=== PATIENT | male | born 1970 | race African-American/Black ===

== ENCOUNTER 2021-10-21 06:26 | Inpatient (IN) | payer BC ==
[2021-10-21 07:36] VITALS: BP 179/92
[2021-10-21 11:00] VITALS: BP 190/100
[2021-10-21] MEDS ORDERED: HYDR100T24 PO (11:01)
[2021-10-21] MEDS ORDERED: DAPA10TA PO (11:01)
[2021-10-21] MEDS ORDERED: BUME2TAB3 PO (11:01)
[2021-10-21] MEDS ORDERED: MAGN400C PO (11:01)
[2021-10-21] MEDS ORDERED: INSU100I13 SQ (11:01)
[2021-10-21] MEDS ORDERED: LIPITOR80 MG PO (11:01)
[2021-10-21] MEDS ORDERED: CARV25TA2 PO (11:01)
--- NOTE | 2021-10-21 11:12 | PDOC2 ---
CARDIOLOGY CONSULT NOTE DATE OF SERVICE: DATE: 10/21/21 TIME: 11:07 CHIEF COMPLAINT: Dizziness and fatigue HPI: 51-year-old man who comes into the hospital in the setting of dizziness and lightheadedness. He was in his usual state of health and apparently yesterday at the grocery store began to move grocery carts from the parking lot into the grocery store in the significant heat and he did this for about an hour just to help other customers. He states that since then he also went to his yard work in the yard and then apparently had weakness and fatigue and some dizziness after that. Upon arrival to the [place] his creatinine was noted to be elevated to 3.5 from a baseline of 2.5 previously. The patient denied any associated palpitations, chest pain, dyspnea, orthopnea or PND. 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 He denies any other issues. He follows closely with nephrology and cardiology through [facility]. He has not had any other issues since admission to the hospital here at [facility]. PMHX: 1. Nonischemic cardiomyopathy last known ejection fraction of 40% 2. Chronic kidney disease 3. Hypertension 4. Dyslipidemia 5. Diabetes SOCHX: No alcohol, tobacco or illicit drug use. 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 He has a brother who works as well and is unable to care for their mother. FAMHX: Noncontributory CURRENT MEDS: Current home medications include carvedilol 25 mg p.o. twice daily, atorvastatin 80 mg daily, hydralazine 50 mg 3 times daily, bumetanide 2 mg daily, Entresto 97/103 twice daily, Farxiga 10 mg alton, insulin glargine 300 units twice daily ALLERGIES: No known drug allergies ROS: Negative for 10-14 systems reviewed unless otherwise mentioned above in HPI PHYSICAL EXAM: Vital Signs/I&O: Vital Signs Date Time Temp Pulse Resp B/P (MAP) Pulse Ox O2 Delivery O2 Flow Rate FiO2 10/21/21 11:00 97.8 66 18 190/100 (130) 98 Room Air 97.8 Physical Exam: GEN.: No apparent distress. Alert and oriented. HEENT: Head is normocephalic, atraumatic NECK: Supple. LUNGS: Clear to auscultation. HEART: RRR, S1, S2 present. Peripheral pulses intact ABDOMEN: Soft, nontender. Positive bowel sounds. EXTREMITIES: Without any cyanosis. NEUROLOGIC: Normal speech, normal tone PSYCHIATRIC: Normal affect, normal mood. SKIN: No ulcerations DIAGNOSTIC TESTING: Laboratory studies reviewed from [facility] [place] EKG reviewed Cardiac enzymes are negative BNP mildly elevated ASSESSMENT: 1. Dizziness likely secondary to dehydration 2. Nonischemic cardiomyopathy with an ejection fraction of 40% 3. Chronic kidney disease 4. Hypertension 5. Dyslipidemia 6. Diabetes PLAN: 1. No further cardiac testing necessary at this time. We will hold his Entresto and increase his hydralazine from home 50 mg 3 times daily 200 mg 3 times daily 2. He will have close follow-up with his outpatient applications analyst and harness racing handicapper for reinitiation of Entresto when his creatinine is improved. 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 From a purely cardiovascular standpoint stable for discharge. Thank you for this consultation. Discussed with primary care and nephrology. RYAN NGUYEN MD October 21, 2021 11:12
--- NOTE | 2021-10-21 11:48 | PDOC2 ---
CONSULT Date of Consult Date of Consult DATE: 10/21/21 TIME: 11:41 Reason for Consult Reason for Consult: RENAL FAILURE Referring Physician Referring Physician: JIM Identification/Chief Complaint Chief Complaint DIZZY Source Source: Chart review, Patient History of Present Illness Reason for Visit: THIS IS A 51 YR OLD WHO PRESENTED TO [facility] WITH DIZZINESS. NO CHEST PAIN OR ORTHOPNEA OR SOB. 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 EVALUATION THERE INDICATED A CR OF 3.5. HE WAS TRANSFERRED HER FOR RENAL AND CARDIOLOGY EVALUATION. HAS HX OF CHF. CXRAY DONE NEG FOR FAILURE. HAS CKD STAGE 4 WITH CR BASELINE IN THE 3.0-3.5 RANGE C/W CKD STAGE 4. HE SEES MY PARTNER DR VEE IN THE [facility]. SINCE ADMIT HE IS FEELING WELL. CARDIOLOGY EVALUATION ONGOING Past Medical History Cardiovascular: CHF, HTN, Hyperlipidemia GI: Constipation Heme/Onc: Anemia NOS Renal/: Chronic renal insuff Endocrine: Diabetes Past Surgical History Past Surgical History: Appendectomy Family History Family History: Diabetes, Hypertension Social History No ALCOHOL: none Drugs: None Lives: with Family Current Medications Current Medications Active Scripts Active Reported Lantus Solostar (Insulin Glargine,Hum.rec.anlog) 100 Unit/1 Ml Insuln.pen 30 Unit SQ BID Magnesium (Magnesium Oxide) 400 Mg Capsule 1 Cap PO BID 30 Days Farxiga (Dapagliflozin Propanediol) 10 Mg Tablet 10 Mg PO DAILY Bumetanide 2 Mg Tablet 2 Mg PO DAILY Hydralazine Hcl 100 Mg Tablet 1 Tab PO TID Lipitor (Atorvastatin Calcium) 80 Mg Tablet 1 Tab PO DAILY Carvedilol 25 Mg Tablet 25 Mg PO BIDWMEALS ROS General: YES: Fatigue, Malaise, Appetite PSYCHOLOGICAL ROS: YES: Depression ALLERGY AND IMMUNOLOGY: YES: Seasonal Allergies Respiratory: YES: Cough Genitourinary: YES Other (NOCTURIA) Musculoskeletal: Yes Muscular Weakness Neurological: Yes Dizziness Skin: Yes Dry Skin Physical Exam General: Alert, Oriented X3, Cooperative, No acute distress HEENT: Atraumatic Lungs: Clear to auscultation, Normal air movement Heart: Regular rate Abdomen: Normal bowel sounds, Soft, No tenderness Skin: No breakdown Neuro: Normal speech Psych/Mental Status: Mental status NL, Mood NL MUSCULOSKELETAL: No joint tenderness, No deformity Vitals VITALS Vital Signs Date Time Temp Pulse Resp B/P (MAP) Pulse Ox O2 Delivery O2 Flow Rate FiO2 10/21/21 11:00 97.8 66 18 190/100 (130) 98 Room Air 97.8 Assessment/Plan Assessment/Plan IMP CKD STAGE 4-CR OF 3.5 AND AT BASELINE ANEMIA OF CKD-HGB STABLE AT 11.1 MILD DEHYDRATION DM II HTN PLAN RENAL FXN IS STABLE PT WANTS TO GO HOME OK TO D/C FROM RENAL STANDPOINT D/W CARDIOLOGY HOLDING ENTRESTO AND INCREASING HYDRALAZINE PT TO CALL MY PARTNER DR VEE NEXT WEEK TO SEE HER IN OFFICE DREA BHAKTA MD October 21, 2021 11:48
--- NOTE | 2021-10-21 12:22 | HP ---
DATE OF SERVICE: 10/21/2021 ADMIT DATE: 10/21/2021 HISTORY OF PRESENT ILLNESS: The patient is a 51-year-old -[place] male patient who presented to the Emergency Room of [facility] with a complaint of dizziness and fatigue symptoms. He denies any chest pain. He reports that he felt slightly short of breath while he was exerting himself when working outside for several hours though he denied any shortness of breath when he arrived. He denied any diaphoresis, syncope or near syncope. Denied any headache. Denied any vision changes. Denied any focal motor weakness. 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 He then went home and spent several hours doing yard work with his mother and he felt dizzy, lightheaded and lethargic. He checked his blood sugar at that time, it was high at 350 and he took a dose of his Lantus as he is not on any fast-acting insulin. On his route to the Emergency Room, his blood sugar was in 200s. He was extensively investigated and has had an EKG, which showed that he was in sinus rhythm at 70 beats per minute with left axis deviation with no STEMI. His chest x-ray showed the heart size is upper limit of normal. Mediastinum is unremarkable. Lung north are clear. No acute bony abnormalities are seen. He did have lab work done in the Emergency Room and that showed his white cell count to be 10.5, hemoglobin 11, hematocrit 32, MCV was 101 and platelet count of 241,000 with normal manual differential. His chemistry showed a serum sodium 140, potassium 4, chloride 105, bicarbonate 25, anion gap of 10, BUN 57, creatinine was 3.5. Estimated GFR was 22 mL per minute. His glucose was 256, calcium was 8.7, phosphorus 4.4, magnesium was 2.1. Total bilirubin, AST, ALT, alkaline phosphatase were normal. CK was 717. Beta natriuretic peptide was 1388. His first set of troponin I high sensitivity was 47 and the second was 49. Total protein 6.8, albumin 3.2. His prothrombin time was 10.5, INR of 1, APTT was 25. Urinalysis showed the urine was yellow, clear with a pH of 5.5, specific gravity of 1.010, there was large amount of protein, large amount of glucose. However, the urine was negative for ketones, blood, nitrite, bilirubin and leukocyte esterase. There are no rbc's, no wbc's and no bacteria. His toxic screen was essentially negative. His influenza A and B as well as coronavirus by rapid antigen testing was negative. His chest x-ray showed the heart size is upper limit of normal. Mediastinum is unremarkable. Lung north are clear. No acute bony abnormalities are seen. The patient was transferred to [facility] for further evaluation and treatment and to consult the first line supervisor as well as the employee benefits manager as stated. PAST MEDICAL HISTORY: Significant for type 2 diabetes mellitus with diabetic nephropathy, retinopathy as well as peripheral neuropathy and has coronary artery disease status post myocardial infarction. He is known to have other medical problems to include nonischemic cardiomyopathy with left ventricular ejection fraction of 30%, hypertension, hyperlipidemia, obstructive sleep apnea, anemia of chronic kidney disease and chronic kidney disease due to diabetic and hypertensive nephropathy. PAST SURGICAL HISTORY: Significant for left heart catheterization and also incision and debridement for necrotizing fasciitis. FAMILY HISTORY: Positive for diabetes and hypertension. Also, end-stage renal disease. His mother is on hemodialysis. He has not seen his father for the last 45 years. SOCIAL HISTORY: He is , has one son. He does not smoke, drink alcohol or use recreational drugs. 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 He has moved from [place] about 4 years ago to take care of his mother. ALLERGIES: He has no known drug allergies. MEDICATIONS: He is currently on hydralazine 25 mg twice a day, carvedilol 25 mg twice a day, amlodipine besylate 5 mg daily, spironolactone 25 mg daily, bumetanide 2 mg twice a day, magnesium oxide 400 mg once a day, ondansetron 4 mg ODT every 6 to 8 hours. He is also on Lantus insulin 30 units twice a day. REVIEW OF SYSTEMS: As per history of present illness. PHYSICAL EXAMINATION: GENERAL: On arrival to the Emergency Room, he apparently looked well and was clearly in no apparent respiratory distress. He was pale, but no jaundice, cyanosis or thyromegaly. No jugular venous distention. No lower limb edema. VITAL SIGNS: His heart rate was 78, blood pressure was 202/113, his temperature was 97.6, respiratory rate was 20 and oxygen saturation was 97% on room air. HEAD, EYES, EARS, NOSE, AND THROAT: Normocephalic, atraumatic. NECK: Supple. HEART: Showed normal first and second heart sounds. No gallop, rub or murmur. CHEST: Shows central trachea, equal bilateral chest expansion, air entry, vesicular breath sounds. I could not appreciate any crepitation or rhonchi. ABDOMEN: Distended, soft, nontender. NEUROLOGIC: He was awake, alert. All his cranial nerves are intact. He moves extremities without difficulty. He normally ambulates without assistance or assistive devices. LABORATORY DATA: His lab work showed a white cell count of 10.5, hemoglobin 11, hematocrit 33, MCV 101 and platelet count of 241,000. Serum sodium was 140, potassium 4, chloride 105, bicarbonate 25, anion gap of 10, BUN 57, creatinine 3.5. Estimated GFR was 22 mL per minute. His glucose was 256, calcium was 8.7, phosphorus 4.4, magnesium 2.1. Total bilirubin, AST, ALT, alkaline phosphatase were normal. CK was 717. First set of troponin I high sensitivity was 47, beta natriuretic peptide was 1388. Total protein 6.8, albumin was 3.2. His prothrombin time, INR and APTT are normal. Urinalysis was positive for protein and glucose. Negative for everything else. His coronavirus by rapid antigen testing as well as influenza A and B were negative. ASSESSMENT AND PLAN: In summary, this is a 51-year-old -[place] male patient who was transferred to [facility] with a complaint of dizziness and lightheadedness. He was found to have accelerated hypertension, acute on chronic kidney injury, type 2 diabetes with diabetic retinopathy as he gets treatment with laser photocoagulation for retinopathy. He is known to have chronic kidney disease likely due to diabetic and hypertensive nephropathy, anemia of chronic kidney disease. He has also nonischemic cardiomyopathy with an ejection fraction of only 30%. He apparently saw his first line supervisor, Dr. Diane last . I will contact the [facility]'s as the patient does not know the exact dose of his medications and we will consult the employee benefits manager as well as a first line supervisor. MELANIE/NATHAN MIJARES: Viry TID: [id number]
--- NOTE | 2021-10-21 12:41 | NUR ---
Discharge Note: TAYLOR KNOWLES JAY Discharge instructions and discharge home medications reviewed with Patient and a copy given. All questions have been answered and understanding verbalized. The following instructions and handouts were given: follow up instructions, medication education Discontinued lines and drains: 18 gauge left FA, tip intact. patient tolerated well. Patient discharged to home with self care via family.
== END 2021-10-21 12:10 | disposition home or self-care (01) | DRG 641 ==
LOC: 5 NORTH 06:26
PROVIDERS: ADMIT Internal Medicine; ATTEND Internal Medicine
DX: E86.0 Dehydration (principal); N17.9 Acute kidney failure, unspecified; I42.8 Other cardiomyopathies; I13.0 Hypertensive heart and chronic kidney disease with heart failure and stage 1 through stage 4 chronic kidney disease, or unspecified chronic kidney disease; N18.4 Chronic kidney disease, stage 4 (severe); E11.319 Type 2 diabetes mellitus with unspecified diabetic retinopathy without macular edema; E11.42 Type 2 diabetes mellitus with diabetic polyneuropathy; I25.10 Atherosclerotic heart disease of native coronary artery without angina pectoris; I25.2 Old myocardial infarction; E78.5 Hyperlipidemia, unspecified; G47.33 Obstructive sleep apnea (adult) (pediatric); I50.9 Heart failure, unspecified; K59.00 Constipation, unspecified; E11.22 Type 2 diabetes mellitus with diabetic chronic kidney disease; D63.1 Anemia in chronic kidney disease; Z83.3 Family history of diabetes mellitus; Z82.49 Family history of ischemic heart disease and other diseases of the circulatory system; Z79.899 Other long term (current) drug therapy; Z84.1 Family history of disorders of kidney and ureter; Z79.4 Long term (current) use of insulin; Z90.49 Acquired absence of other specified parts of digestive tract
CPT/HCPCS: G0378